=== PATIENT | female | born 1995 | race Caucasian/White ===

== ENCOUNTER 2017-05-01 11:00 | Emergency (ER) | payer OTHER ==
[~2017-05-01] VITALS: Ht 170.2 cm; Wt 56.7 kg
[~2017-05-01 11:00] MED LIST: CIPROFLOXACIN500 M1 PO; PHENERGAN 25 MG25 M1 PO
[2017-05-01 11:17] VITALS: BP 110/69
[2017-05-01] MEDS ORDERED: PROZAC10 MG (11:23)
[2017-05-01] MEDS ORDERED: TRAZODONE 150150 M1 (11:23)
[2017-05-01] MEDS ORDERED: BIRTH CONTROL PILL (11:23)
[2017-05-01] MEDS ORDERED: SEROQUEL 25 MG25 M1 (11:23)
[2017-05-01] MEDS ORDERED: MEDROLDOSEPACK PO (11:37)
[2017-05-01] MEDS ORDERED: VISTARIL 25 MG25 M1 PO (11:39)
== END 2017-05-01 11:48 ==
LOC: ER 11:00
DX: L23.7 Allergic contact dermatitis due to plants, except food (principal); F41.9 Anxiety disorder, unspecified; F32.9 Major depressive disorder, single episode, unspecified; F17.210 Nicotine dependence, cigarettes, uncomplicated

== ENCOUNTER 2017-11-24 17:33 | Emergency (ER) | payer OTHER ==
[~2017-11-24] VITALS: Ht 170.2 cm; Wt 61.2 kg
[~2017-11-24 17:33] MED LIST changes: +AFRIN30 ML NASAL; +BIRTH CONTROL PILL; +CLARITIN-D 121 EAC1 PO; +IBUPROFEN 800800 M1 PO; +MACROBID 100 M100 M1 PO; +MEDROLDOSEPACK PO; +PROZAC10 MG; +SEROQUEL 25 MG25 M1; +TRAZODONE 150150 M1; +VISTARIL 25 MG25 M1 PO; +ZOFRAN ODT4 M1 PO
[2017-11-24 18:07] LABS: ABSOLUTE NEUTROPHILS 7.8 thou/uL (1.4-8.2); BASOPHILS 0.7 % (0.0-2.0); EOSINOPHILS 1.4 % (0.0-3.0); HEMATOCRIT 41.4 % (37.0-47.0); LYMPHOCYTES 33.3 % (24.0-44.0); MCHC 33.9 g/dL (28.0-37.0); MCV 91.4 fL (80.0-100.0); MONOCYTES 4.6 % (1.0-8.0); PLATELET COUNT 281 thou/uL (150-400); RBC 4.53 mil/uL (4.20-5.00); RDW 12.9 % (10.5-14.5)
[2017-11-24 18:07] LABS: URINE BILIRUBIN NEGATIVE (Negative); URINE BLOOD TRACE (Negative); URINE COLOR YELLOW; URINE GLUCOSE-RANDOM* NEGATIVE (Negative); URINE KETONES NEGATIVE (Negative); URINE NITRITE NEGATIVE (Negative); URINE PROTEIN (DIPSTICK) NEGATIVE (Negative); URINE SPECIFIC GRAVITY >= 1.030 (1.005-1.035); URINE UROBILINOGEN 0.2 E.U./dl (0.2-1.0)
[2017-11-24 18:09] LABS: MANUAL DIFF NO
[2017-11-24 18:14] LABS: BACTERIA 1-9 Few /HPF (None Seen); CASTS None Seen /LPF (None Seen); CRYSTALS None Seen /LPF (None Seen); SQUAMOUS >10 Many /LPF (0-3); URINE RBC 0-2 Rare /HPF (0-2); URINE WBC 6-15 Few /HPF (0-5)
[2017-11-24 18:16] LABS: CALCIUM 9.9 mg/dL (8.5-10.1); CREATININE 0.8 mg/dL (0.6-1.0); POTASSIUM 3.5 mmol/L (3.5-5.1)
[2017-11-24 18:18] LABS: ALBUMIN 4.2 g/dL (3.4-5.0); TOTAL BILIRUBIN 0.4 mg/dL (<0.1-1.0); TOTAL PROTEIN 8.2 g/dL (6.4-8.2)
[2017-11-24 19:33] VITALS: BP 131/67
== END 2017-11-24 19:34 | disposition home or self-care (01) ==
LOC: ER 17:33
PROVIDERS: Physician Assistant
DX: R11.2 Nausea with vomiting, unspecified (principal); R19.7 Diarrhea, unspecified; F41.9 Anxiety disorder, unspecified; F32.9 Major depressive disorder, single episode, unspecified; F17.210 Nicotine dependence, cigarettes, uncomplicated